=== PATIENT | male | born 1945 | race Caucasian/White ===

== ENCOUNTER 2017-07-27 17:51 | Inpatient (IN) | payer OTHER ==
[~2017-07-27] VITALS: Ht 160 cm; Wt 48.5 kg
[2017-07-31] MEDS ORDERED: CLONAZEPAM1 MG PO (10:53)
== END 2017-08-09 12:26 | disposition home or self-care (01) | DRG 940 ==
LOC: SURG 08-05 08:45 → O/R 08-06 10:10 → SURH 08-06 10:10 → SURG 08-06 17:45 → SURH 08-07 14:13
PROVIDERS: Colon & Rectal Surgery
PROC: 0DQB4ZZ Repair Ileum, Percutaneous Endoscopic Approach (ICD-10-PCS; principal; 2017-08-06 17:45)
DX: Z93.2 Ileostomy status (principal); C20 Malignant neoplasm of rectum; K91.89 Other postprocedural complications and disorders of digestive system; Z85.038 Personal history of other malignant neoplasm of large intestine; E86.0 Dehydration; R25.8 Other abnormal involuntary movements; F32.89 Other specified depressive episodes

== ENCOUNTER 2017-07-28 08:33 | Outpatient (CLI) | payer OTHER | END 2017-07-28 14:33 | disposition home or self-care (01) | LOC: RX STUDY 08:33 | DX: C19 Malignant neoplasm of rectosigmoid junction (principal); Z85.038 Personal history of other malignant neoplasm of large intestine; K92.1 Melena; R59.0 Localized enlarged lymph nodes ==

== ENCOUNTER 2017-08-12 18:11 | Inpatient (IN) | payer OTHER ==
[~2017-08-12] VITALS: Ht 160 cm; Wt 48.5 kg
[~2017-08-12 18:11] MED LIST: CLONAZEPAM1 MG PO
[2017-08-20] MEDS ORDERED: LASIX20 MG PO (10:31)
[2017-08-20] MEDS ORDERED: XOPENEX0.63 MG/3 IH (10:31)
[2017-08-20] MEDS ORDERED: ISOSORBIDE MONO30 MG PO (10:31)
== END 2017-08-20 13:32 | disposition home or self-care (01) | DRG 871 ==
LOC: ER 18:11 → ICU-2 08-13 12:23 → ICU 08-13 12:23 → MEDI 08-15 19:55
PROC: 3E0F7GC Introduction of Other Therapeutic Substance into Respiratory Tract, Via Natural or Artificial Opening (ICD-10-PCS; principal; 2017-08-13)
PROC: 4A033R1 Measurement of Arterial Saturation, Peripheral, Percutaneous Approach (ICD-10-PCS; 2017-08-13)
PROC: B246ZZZ Ultrasonography of Right and Left Heart (ICD-10-PCS; 2017-08-14)
PROC: BB24ZZZ Computerized Tomography (CT Scan) of Bilateral Lungs (ICD-10-PCS; 2017-08-14)
PROC: 4A12X4Z Monitoring of Cardiac Electrical Activity, External Approach (ICD-10-PCS; 2017-08-15)
DX: A41.9 Sepsis, unspecified organism (principal); J81.0 Acute pulmonary edema; C20 Malignant neoplasm of rectum; R18.8 Other ascites; J90 Pleural effusion, not elsewhere classified; K92.1 Melena; E86.0 Dehydration; D50.0 Iron deficiency anemia secondary to blood loss (chronic); B19.20 Unspecified viral hepatitis C without hepatic coma; K74.69 Other cirrhosis of liver; R39.2 Extrarenal uremia; R09.02 Hypoxemia; F32.89 Other specified depressive episodes

== ENCOUNTER → 2018-05-29 | Day surgery (SDC) | payer OTHER ==
[~2018-05-29] MED LIST changes: +ISOSORBIDE MONO30 MG PO; +LASIX20 MG PO; +XOPENEX0.63 MG/3 IH
== END | disposition home or self-care (01) ==
LOC: ADM 05-28 14:30 → AMB-ENDOS 12:00
DX: K92.1 Melena (principal); Z85.038 Personal history of other malignant neoplasm of large intestine

== ENCOUNTER 2019-08-13 09:17 | Day surgery (SDC) | payer OTHER | END 2019-08-13 17:15 | disposition home or self-care (01) | LOC: AMB-ENDOS 09:17 | DX: D12.2 Benign neoplasm of ascending colon (principal) ==

== ENCOUNTER 2020-12-01 06:00 | Day surgery (SDC) | payer OTHER | END 2020-12-01 10:00 | disposition home or self-care (01) | LOC: AMB-ENDOS 06:00 | PROVIDERS: ATTEND Colon & Rectal Surgery | DX: K62.89 Other specified diseases of anus and rectum (principal); Z20.822 Contact with and (suspected) exposure to COVID-19 ==